=== PATIENT | female | born 1975 | race Caucasian/White ===

== ENCOUNTER 2024-10-19 18:58 | Emergency (ER) | payer MEDICAID, OTHER ==
[2024-10-19 19:15] VITALS: BP 141/71; PULSE 90
== END 2024-10-19 19:48 | disposition home or self-care (01) ==
LOC: JP.ED 18:58
DX: M26.602 Left temporomandibular joint disorder, unspecified (principal); Z88.8 Allergy status to other drugs, medicaments and biological substances; Z79.899 Other long term (current) drug therapy; Z86.16 Personal history of COVID-19; Z90.710 Acquired absence of both cervix and uterus
CPT/HCPCS: 99283

== ENCOUNTER 2024-10-20 21:27 | Emergency (ER) | payer OTHER ==
[2024-10-20 22:02] LABS: BASOPHILS PERCENT AUTO 0.3 % (0.1-1.3); EOSINOPHILS ABSOLUTE AUTO 0.12 K/uL (0.00-0.40); EOSINOPHILS PERCENT AUTO 1.7 % (0.0-5.4); HEMATOCRIT 38.4 % (34.3-46.0); HEMOGLOBIN 13.3 g/dL (11.2-15.5); IMMATURE GRAN ABSOLUTE AUTO 0.04 K/uL (0.00-0.23); IMMATURE GRAN PERCENT AUTO 0.6 % (0.0-0.7); LYMPHOCYTES ABSOLUTE AUTO 3.14 K/uL (0.8-3.3); LYMPHOCYTES PERCENT AUTO 44.9 % (11.4-47.7); MEAN CORPUSCULAR HEMOGLOBIN 32.1 pg (31.6-35.5); MEAN CORPUSCULAR HGB CONC 34.6 g/dL (31.6-35.5); MEAN CORPUSCULAR VOLUME 92.8 fL (81.4-99.0); MONOCYTES ABSOLUTE AUTO 0.46 K/uL (0.20-0.90); MONOCYTES PERCENT AUTO 6.6 % (3.3-12.6); NEUTROPHILS ABSOLUTE AUTO 3.21 K/uL (1.0-7.6); NEUTROPHILS PERCENT AUTO 45.9 % (40.0-78.1); PLATELET COUNT,PLT 159 K/uL (130-375); RED BLOOD CELL COUNT 4.14 M/uL (3.77-5.24)
[2024-10-20 22:03] LABS: BASOPHILS ABSOLUTE AUTO 0.02 K/uL (0.00-0.10)
[2024-10-20] MEDS: Sodium Chloride 0.9% 80 ML IV SCH (22:21)
[2024-10-20] MEDS: Iopamidol 612 MG/ML 100 ML Bottle IV SCH (22:21)
[2024-10-20 22:23] LABS: A/G RATIO 1.1 (1.2-2.2); ALANINE AMINOTRANSFERASE,ALT 63 U/L (12-78); ALBUMIN 3.6 g/dL (3.4-5.0); ALKALINE PHOSPHATASE 117 U/L (46-116); ASPARTATE AMNIOTRANSFERASE,AST 36 U/L (15-37); BILIRUBIN TOTAL 0.3 mg/dL (0.2-1.0); BLOOD UREA NITROGEN,BUN 13 mg/dL (7-18); C-REACTIVE PROTEIN 1.24 mg/dL (<0.50); CARBON DIOXIDE,CO2 27 mmol/L (21-32); CHLORIDE,CL 102 mmol/L (100-108); CREATININE 1.1 mg/dL (0.6-1.0); EST CRCL DRUG DOSING (CG) 63.94 mL/min; ESTIMATED GFR 61 mL/min (>60); GLUCOSE RANDOM 120 mg/dL (74-106); POTASSIUM,K 3.5 mmol/L (3.6-5.2); SODIUM,NA 140 mmol/L (140-148)
[2024-10-20 22:24] LABS: ANION GAP 14.5 mmol/L (5.0-14.0)
[2024-10-21] MEDS: methylPREDNISolone Sodium Succinate 40 MG/1 ML SDV IVPUSH ONE (00:16)
[2024-10-21 00:33] VITALS: BP 134/68; PULSE 68
== END 2024-10-21 00:33 | disposition home or self-care (01) ==
LOC: JP.ED 21:27
DX: R22.0 Localized swelling, mass and lump, head (principal); J45.909 Unspecified asthma, uncomplicated; E66.9 Obesity, unspecified; Z68.41 Body mass index [BMI] 40.0-44.9, adult; Z86.16 Personal history of COVID-19; Z90.710 Acquired absence of both cervix and uterus; Z87.891 Personal history of nicotine dependence; Z88.8 Allergy status to other drugs, medicaments and biological substances; Z79.899 Other long term (current) drug therapy
CPT/HCPCS: 36415; 70487; 80053; 85025; 86140; 96374; 99284; J2919; Q9967

== ENCOUNTER 2025-06-06 23:06 | Emergency (ER) | payer OTHER ==
[2025-06-07 02:06] VITALS: BP 107/59; PULSE 64
[2025-06-07] MEDS: Diphtheria,Pertussis(Acell),Tetanus Vaccine 0.5 ML Syringe IM ONE (02:09)
== END 2025-06-07 02:24 | disposition home or self-care (01) ==
LOC: JP.ED 23:06
DX: S91.312A Laceration without foreign body, left foot, initial encounter (principal); J45.909 Unspecified asthma, uncomplicated; Z88.1 Allergy status to other antibiotic agents; Z88.8 Allergy status to other drugs, medicaments and biological substances; Z79.899 Other long term (current) drug therapy; Z23 Encounter for immunization; Z86.16 Personal history of COVID-19; W20.8XXA Other cause of strike by thrown, projected or falling object, initial encounter; Y93.89 Activity, other specified
CPT/HCPCS: 12001; 73630-26-LT; 73630-LT; 90471; 90715; 99283; 99283-25